=== PATIENT | female | born 1965 | race Caucasian/White ===

== ENCOUNTER → 2021-01-08 | Outpatient (CLI) | payer OTHER ==
[~2021-01-08] MED LIST: DAYPRO600 M1 PO; FLEXERIL10 MG PO; MOTRIN800 MG PO; PREDNICOT20 MG PO; ROBAXIN750 MG PO; ZIAC 10 MG-6.251 TAB PO
== END | disposition home or self-care (01) ==
LOC: ORTHO 00:49
PROVIDERS: ATTEND Orthopaedic Surgery
DX: M17.11 Unilateral primary osteoarthritis, right knee (principal); M20.41 Other hammer toe(s) (acquired), right foot; M21.071 Valgus deformity, not elsewhere classified, right ankle; M21.061 Valgus deformity, not elsewhere classified, right knee

== ENCOUNTER 2021-03-09 16:55 | Emergency (ER) | payer OTHER ==
[~2021-03-09] VITALS: Ht 175.2 cm; Wt 86.2 kg
[2021-03-09] MEDS ORDERED: SEPTDS PO (19:00)
== END 2021-03-09 19:12 | disposition home or self-care (01) ==
LOC: ED 16:55
DX: L03.115 Cellulitis of right lower limb (principal); R50.9 Fever, unspecified; Z88.0 Allergy status to penicillin; Z79.899 Other long term (current) drug therapy; Z98.890 Other specified postprocedural states; Z90.89 Acquired absence of other organs

== ENCOUNTER → 2021-12-22 | Day surgery (SDC) | payer OTHER ==
[2021-12-17 13:41] VITALS: BP 160/81
[~2021-12-22] VITALS: Ht 175.2 cm; Wt 83.9 kg
[~2021-12-22] MED LIST changes: +CARVEDILOL25 MG PO; +DOXYCYCLINE50 M2 PO; +HYDRALAZINE HC100 MG PO; +HYDROCHLOROTHIA50 M1 PO; +LEVOTHYROXINE100 MC1 PO; +POTASSIUM CHLO20 ME4 PO; +SEPTDS PO; +TYLENOL EXTRA500 MG PO; +ULTRAM50 MG PO; +XARELTO10 MG PO
[2021-12-22 09:30] VITALS: BP 150/88
[2021-12-22 13:23] VITALS: BP 138/69
[2021-12-22 13:38] VITALS: BP 153/71
[2021-12-22 13:53] VITALS: BP 150/77
[2021-12-22 14:08] VITALS: BP 153/77
== END | disposition home or self-care (01) ==
LOC: SDC 12-17 13:15
PROVIDERS: ATTEND Podiatrist
DX: M21.6X1 Other acquired deformities of right foot (principal); M24.574 Contracture, right foot; I10 Essential (primary) hypertension; F17.200 Nicotine dependence, unspecified, uncomplicated; E03.9 Hypothyroidism, unspecified; K76.0 Fatty (change of) liver, not elsewhere classified; Z79.899 Other long term (current) drug therapy

== ENCOUNTER → 2022-04-14 | Day surgery (SDC) | payer OTHER ==
[~2022-04-14] VITALS: Ht 175.2 cm; Wt 83.9 kg
[~2022-04-14] MED LIST changes: +PERCOCET 5-3251 EACH PO
[2022-04-14 08:25] VITALS: BP 147/73
[2022-04-14 08:50] VITALS: BP 124/63
[2022-04-14 09:05] VITALS: BP 137/75
[2022-04-14 09:20] VITALS: BP 127/82
== END | disposition home or self-care (01) ==
LOC: SDC 04-11 11:00
PROVIDERS: ATTEND Surgery
DX: D17.22 Benign lipomatous neoplasm of skin and subcutaneous tissue of left arm (principal); I10 Essential (primary) hypertension; E78.00 Pure hypercholesterolemia, unspecified; F17.210 Nicotine dependence, cigarettes, uncomplicated; Z87.01 Personal history of pneumonia (recurrent); Z88.0 Allergy status to penicillin; Z90.710 Acquired absence of both cervix and uterus; Z79.899 Other long term (current) drug therapy